=== PATIENT | male | born 1985 | race Caucasian/White ===

== ENCOUNTER 2017-03-17 20:54 | Emergency (ER) | payer BC ==
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
[2017-03-17 22:32] VITALS: BP 127/76
--- NOTE | 2017-03-19 11:38 | CR ---
EXAM DATE: 03/17/17 PATIENT'S AGE: 32 Patient: SANJEEV MARQUES Facility: [place], [place] Site . Site : 1985 Study: XRay Extremity Right HAND [id number]/15/2017 9:42:46 PM Ordering Physician: Ashlee Tejada Final Report: Indication: Trauma. Hand caught between 2 metal pieces yesterday. Technique: Right hand three views. Comparison: None. Findings: Dorsal cortical irregularity seen best on the lateral view at the base of one of the metacarpals, possibly the 3rd metacarpal. No additional evidence of acute fracture. Altered morphology of the 5th metacarpal consistent with a remote fracture. Soft tissue swelling along the dorsum of the hand. No radiopaque foreign body evident. Impression: Fracture best seen on the lateral view possibly involving the dorsal base of the 3rd metacarpal. Correlation for point tenderness recommended. Dictated by Cesar Kam MD @ 03/17/2017 9:53:09 PM Dictated by: Cesar Kam MD @ 03/17/2017 21:53:21 (Electronic Signature) Report Signed by Proxy. LEIGHTON
== END 2017-03-17 22:32 | disposition home or self-care (01) ==
LOC: MW.ED 20:54
DX: S62.342A Nondisplaced fracture of base of third metacarpal bone, right hand, initial encounter for closed fracture (principal); W23.1XXA Caught, crushed, jammed, or pinched between stationary objects, initial encounter
CPT/HCPCS: 29125; 73130-26-RT; 73130-RT; 99282; 99283